=== PATIENT | male | born 1960 | race Caucasian/White ===

== ENCOUNTER 2022-03-10 11:16 | Inpatient (IN) | payer MEDICARE ==
[~2022-03-10 11:16] MED LIST: Iopamidol-370 76% 500 ML 1 ML ONE
[2022-03-10 12:16] LABS: #Eosinphils 0.2 thou/uL (0.0-0.7); #Lymphocytes 0.5 thou/uL (1.20-3.40); #Monocytes 0.7 thou/uL (0.11-0.59); #Neutrophils 4.7 thou/uL (1.40-6.50); %Basophils 0.4 % (0.0-1.0); %Eosinophils 3.4 % (0.0-10.0); %Lymphocytes 8.6 % (21.0-51.0); %Neutrophils 76.5 % (42.0-75.0); Hemoglobin 14.6 g/dL (14.0-18.0); Mean Corpuscular HGB CONC 33.9 g/dL (32.0-36.0); Mean Corpuscular Hemoglobin 30.5 pg (27.0-31.0); Mean Corpuscular Volume 89.8 fL (78.0-98.0); Mean Platelet Volume 7.3 fL (7.4-10.4); Platelet Count 175 thou/uL (130-400); White Blood Cell (WBC) Count 6.1 thou/uL (4.8-10.8)
[2022-03-10 12:24] LABS: Bilirubin Negative (Negative); Blood, Urine Negative (Negative); Clarity Clear (Clear); Glucose, Urine (Dipstick) Normal (Negative); Ketone, Urine Negative (Negative); Leukocyte Negative Leu/uL (Negative); Nitrite Negative (Negative); Protein, Urine (Dipstick) Negative (Neg-Trace); Specific Gravity, Urine 1.014 (1.002-1.036); Urobilinogen Normal mg/dL (Less than 2); pH, Urine 5.5 (5.0-9.0)
[2022-03-10 12:38] LABS: ALT (SGPT) 277 U/L (8-55); AST (SGOT) 239 U/L (5-34); Albumin 3.9 g/dL (3.4-4.8); Alkaline Phosphatase 120 U/L (40-110); Anion Gap 14 mmol/L (10-20); BUN (Urea Nitrogen) 9 mg/dL (8.4-25.7); Bilirubin, Total 0.5 mg/dL (0.2-1.2); Calc. Creatinine Clearance 0 mL/min (70-130); Calcium 8.6 mg/dL (7.8-10.44); Carbon Dioxide 25 mmol/L (23-31); Chloride 103 mmol/L (98-107); Estimated GFR 95; Globulin 2.4 g/dL (2.4-3.5); Glucose 105 mg/dL (80-115); Protein, Total 6.3 g/dL (5.8-8.1); Sodium 138 mmol/L (136-145)
[2022-03-10] MEDS ORDERED: traMADol HCl 50 MG TAB ONE (15:34)
[2022-03-10 17:03] LABS: SARS-CoV-2 NAA Rapid Test Not Detected (NotDetected)
[2022-03-10] MEDS ORDERED: Acetaminophen 325 MG TAB PO PRN (17:35)
[2022-03-10 17:54] LABS: Troponin I 0.016 ng/mL (< 0.028)
[2022-03-10 18:29] VITALS: BMI 28.0
[2022-03-10 18:44] LABS: HBSAg Index 0.33 S/CO (0-0.99); Hep A IgM AB Non-Reactive (NonReactive); Hep A IgM S/CO 0.13 S/CO (0-0.79); Hep B Surf Ag Non-Reactive S/CO (NonReactive); Hep C IgG Ab Non-Reactive (NonReactive); Hep C Index 0.07 S/CO (0-0.79); Thyroid Stimulating Hormone 55.3245 uIU/mL (0.35-4.94)
[2022-03-10 19:27] LABS: HBCM Index 0.05 S/CO (0-0.79); Hepatitis B Core IgM Abs Non-Reactive (NonReactive)
[2022-03-10 21:05] LABS: Troponin I Less than 0.010 ng/mL (< 0.028)
[2022-03-10] MEDS: traZODone HCl 150 MG TAB PO PRN (22:56)
[2022-03-10] MEDS: Ibuprofen 600 MG TAB PO PRN (22:56)
[2022-03-10] MEDS ORDERED: Gabapentin 300 MG CAP PO SCH (23:00)
[2022-03-11 05:11] LABS: Anion Gap 12 mmol/L (10-20); BUN (Urea Nitrogen) 11 mg/dL (8.4-25.7); Calc. Creatinine Clearance 99 mL/min (70-130); Calcium 8.6 mg/dL (7.8-10.44); Carbon Dioxide 26 mmol/L (23-31); Chloride 105 mmol/L (98-107); Estimated GFR 87; Glucose 122 mg/dL (80-115); Potassium 3.8 mmol/L (3.5-5.1); Sodium 139 mmol/L (136-145)
[2022-03-11] MEDS: Ibuprofen 600 MG TAB PO PRN (05:58)
[2022-03-11] MEDS: Levothyroxine 175 MCG TAB PO SCH (05:58)
[2022-03-11 06:46] LABS: Band 13 % (5-11); Eosinophils 10 % (0-10); Lymphocytes 29 % (21-51); MDiff Complete? YES; Mean Corpuscular HGB CONC 34.4 g/dL (32.0-36.0); Mean Corpuscular Hemoglobin 31.4 pg (27.0-31.0); Mean Corpuscular Volume 91.3 fL (78.0-98.0); Mean Platelet Volume 7.3 fL (7.4-10.4); Monocytes 9 % (0-10); Neutrophil 39 % (42-75); Platelet Count 154 thou/uL (130-400); Red Blood Cell (RBC) Count 4.13 mill/uL (4.70-6.10); White Blood Cell (WBC) Count 4.4 thou/uL (4.8-10.8)
[2022-03-11 07:56] LABS: Acetaminophen Less than 10.0 mcg/mL (10.0-30.0); Alcohol Less than 10 mg/dL (Less than 10); Salicylate Less than 8.0 mg/dL (15.0-30.0)
[2022-03-11] MEDS: methylPREDNISolone Sod Succ 40 MG VIAL IVP SCH ×3 (08:11→23:32)
[2022-03-11] MEDS: FLUoxetine HCl 20 MG CAP PO SCH (08:11)
[2022-03-11] MEDS: Morphine 4 MG/ML VIAL SLOW IVP PRN ×3 (14:51→23:33)
[2022-03-11 16:00] LABS: Amphetamine Not Detected (NotDetected); Barbiturates Screen Not Detected (NotDetected); Benzodiazepine Screen Not Detected (NotDetected); Cocaine Metabolite Screen Detected (NotDetected); Methadone Not Detected (NotDetected); Methamphetamine Not Detected (NotDetected); Opiate Screen Not Detected (NotDetected); Oxycodone Screen Not Detected (NotDetected); Phencyclidine (PCP) Not Detected (NotDetected); THC/Cannabinoid Screen Not Detected (NotDetected); Tricyclic Screen Not Detected (NotDetected)
[2022-03-11] MEDS: Ibuprofen 200 MG TAB PO PRN ×2 (16:58→23:33)
[2022-03-11] MEDS: Gabapentin 300 MG CAP PO SCH (19:37)
[2022-03-11] MEDS: traZODone HCl 150 MG TAB PO PRN (23:33)
[2022-03-12 05:01] LABS: #Lymphocytes 0.6 thou/uL (1.20-3.40); #Monocytes 0.4 thou/uL (0.11-0.59); %Basophils 0.1 % (0.0-1.0); %Eosinophils 0.1 % (0.0-10.0); %Lymphocytes 6.1 % (21.0-51.0); %Monocytes 4.4 % (0.0-10.0); %Neutrophils 89.3 % (42.0-75.0); Hemoglobin 11.9 g/dL (14.0-18.0); Mean Corpuscular Hemoglobin 31.2 pg (27.0-31.0); Mean Corpuscular Volume 91.9 fL (78.0-98.0); Mean Platelet Volume 7.4 fL (7.4-10.4); Platelet Count 169 thou/uL (130-400); RBC Distribution Width 13.1 % (11.5-14.5); Red Blood Cell (RBC) Count 3.82 mill/uL (4.70-6.10)
[2022-03-12 05:24] LABS: Anion Gap 14 mmol/L (10-20); BUN (Urea Nitrogen) 10 mg/dL (8.4-25.7); Calc. Creatinine Clearance 107 mL/min (70-130); Calcium 8.8 mg/dL (7.8-10.44); Carbon Dioxide 21 mmol/L (23-31); Chloride 107 mmol/L (98-107); Estimated GFR 95; Glucose 182 mg/dL (80-115); Potassium 3.7 mmol/L (3.5-5.1); Sodium 138 mmol/L (136-145)
[2022-03-12] MEDS: Levothyroxine 175 MCG TAB PO SCH (06:01)
[2022-03-12] MEDS: Morphine 4 MG/ML VIAL SLOW IVP PRN ×3 (06:01→18:12)
[2022-03-12 07:33] LABS: SARS-CoV-2 NAA Rapid Test Not Detected (NotDetected)
[2022-03-12] MEDS: FLUoxetine HCl 20 MG CAP PO SCH (08:49)
[2022-03-12] MEDS: methylPREDNISolone Sod Succ 40 MG VIAL IVP SCH (08:49)
[2022-03-12] MEDS: Ibuprofen 200 MG TAB PO PRN ×2 (08:50→20:07)
[2022-03-12 08:53] LABS: HIV (1/2) Antibody/Antigen Non-Reactive (NonReactive); HIV 1/2 INDEX 0.23 S/CO (<1.00)
[2022-03-12 14:40] LABS: ALT (SGPT) 147 U/L (8-55); AST (SGOT) 59 U/L (5-34); Albumin 4.2 g/dL (3.4-4.8); Alkaline Phosphatase 127 U/L (40-110); Bilirubin, Direct 0.1 mg/dL (0.1-0.3); Bilirubin, Total 0.2 mg/dL (0.2-1.2); Protein, Total 6.9 g/dL (5.8-8.1)
[2022-03-12] MEDS: Gabapentin 300 MG CAP PO SCH (20:07)
[2022-03-13] MEDS: Ibuprofen 200 MG TAB PO PRN (05:33)
[2022-03-13] MEDS: Levothyroxine 175 MCG TAB PO SCH (05:33)
[2022-03-13 07:08] LABS: #Eosinphils 0.3 thou/uL (0.0-0.7); #Lymphocytes 2.2 thou/uL (1.20-3.40); #Neutrophils 5.7 thou/uL (1.40-6.50); %Basophils 0.5 % (0.0-1.0); %Eosinophils 3.7 % (0.0-10.0); %Lymphocytes 24.2 % (21.0-51.0); %Monocytes 10.5 % (0.0-10.0); %Neutrophils 61.2 % (42.0-75.0); Mean Corpuscular HGB CONC 33.5 g/dL (32.0-36.0); Mean Corpuscular Hemoglobin 30.8 pg (27.0-31.0); Mean Platelet Volume 7.1 fL (7.4-10.4); Platelet Count 201 thou/uL (130-400); RBC Distribution Width 13.3 % (11.5-14.5); Red Blood Cell (RBC) Count 3.88 mill/uL (4.70-6.10); White Blood Cell (WBC) Count 9.2 thou/uL (4.8-10.8)
[2022-03-13] MEDS ORDERED: Cyclobenzaprine 10 MG TAB PO PRN (07:15)
[2022-03-13 07:28] LABS: Anion Gap 9 mmol/L (10-20); BUN (Urea Nitrogen) 10 mg/dL (8.4-25.7); Calc. Creatinine Clearance 104 mL/min (70-130); Calcium 8.4 mg/dL (7.8-10.44); Carbon Dioxide 28 mmol/L (23-31); Chloride 107 mmol/L (98-107); Estimated GFR 91; Glucose 95 mg/dL (80-115); Potassium 3.4 mmol/L (3.5-5.1); Sodium 141 mmol/L (136-145)
[2022-03-13] MEDS: FLUoxetine HCl 20 MG CAP PO SCH (07:38)
[2022-03-13 11:24] VITALS: BP 128/70; TEMP 97.5
== END 2022-03-13 12:21 | disposition home or self-care (01) | DRG 202 ==
LOC: ERS 11:16 → 2SW 16:47 → OBSVTOIN 03-11 11:46
PROVIDERS: ADMIT Internal Medicine; ATTEND Internal Medicine
DX: J20.9 Acute bronchitis, unspecified (principal); J18.9 Pneumonia, unspecified organism; Z20.822 Contact with and (suspected) exposure to COVID-19; E03.9 Hypothyroidism, unspecified; F32.A Depression, unspecified; G62.9 Polyneuropathy, unspecified; F17.290 Nicotine dependence, other tobacco product, uncomplicated; F39 Unspecified mood [affective] disorder; Z79.899 Other long term (current) drug therapy; Z79.890 Hormone replacement therapy
CPT/HCPCS: 36415; 71045; 71260; 76705; 80048; 80053; 80074; 80076; 80306; 80307; 81003; 83605; 83880; 84443; 84484; 85025; 87040; 87389; 93005; 93306; 94640; 96374; 96375; G0378; J1956; J2270; J2920; J7620; Q9967; U0002

== ENCOUNTER 2022-04-02 16:33 | Emergency (ER) | payer MEDICARE ==
[2022-04-02 17:29] LABS: #Basophils 0.1 thou/uL (0.0-0.2); #Eosinphils 0.3 thou/uL (0.0-0.7); #Lymphocytes 2.6 thou/uL (1.20-3.40); #Monocytes 0.8 thou/uL (0.11-0.59); #Neutrophils 3.5 thou/uL (1.40-6.50); %Basophils 0.8 % (0.0-1.0); %Eosinophils 4.5 % (0.0-10.0); %Lymphocytes 35.8 % (21.0-51.0); %Monocytes 10.3 % (0.0-10.0); %Neutrophils 48.6 % (42.0-75.0); Hemoglobin 15.3 g/dL (14.0-18.0); Mean Corpuscular HGB CONC 32.6 g/dL (32.0-36.0); Mean Corpuscular Hemoglobin 29.3 pg (27.0-31.0); Mean Corpuscular Volume 89.9 fL (78.0-98.0); Mean Platelet Volume 6.7 fL (7.4-10.4); Platelet Count 328 thou/uL (130-400); RBC Distribution Width 12.8 % (11.5-14.5); Red Blood Cell (RBC) Count 5.22 mill/uL (4.70-6.10); White Blood Cell (WBC) Count 7.3 thou/uL (4.8-10.8)
[2022-04-02 17:50] LABS: ALT (SGPT) 14 U/L (8-55); AST (SGOT) 17 U/L (5-34); Albumin 4.4 g/dL (3.4-4.8); Alkaline Phosphatase 97 U/L (40-110); Anion Gap 17 mmol/L (10-20); BUN (Urea Nitrogen) 13 mg/dL (8.4-25.7); Bilirubin, Total 0.3 mg/dL (0.2-1.2); Calc. Creatinine Clearance 0 mL/min (70-130); Carbon Dioxide 24 mmol/L (23-31); Chloride 102 mmol/L (98-107); Estimated GFR 81; Glucose 96 mg/dL (80-115); Lipase 24 U/L (8-78); Protein, Total 7.4 g/dL (5.8-8.1); Sodium 139 mmol/L (136-145)
[2022-04-02] MEDS ORDERED: Morphine 4 MG/ML VIAL ONE (19:19)
[2022-04-02] MEDS ORDERED: Ondansetron PF 4 MG/2 ML Vial ONE (19:19)
[2022-04-02 19:47] LABS: Bilirubin Negative (Negative); Blood, Urine Negative (Negative); Clarity Clear (Clear); Glucose, Urine (Dipstick) Normal (Negative); Ketone, Urine Negative (Negative); Leukocyte Negative Leu/uL (Negative); Nitrite Negative (Negative); Protein, Urine (Dipstick) Negative (Neg-Trace); Specific Gravity, Urine 1.014 (1.002-1.036); Urobilinogen Normal mg/dL (Less than 2)
[2022-04-02] MEDS ORDERED: Mag-Al 1200 mg/1200 mg/30 ML UDCUP ONE (20:29)
[2022-04-02] MEDS ORDERED: Lidocaine Viscous Sol 2% 15 ml UD Cup ONE (20:29)
== END 2022-04-02 20:44 | disposition home or self-care (01) ==
LOC: ERS 16:33
DX: K52.1 Toxic gastroenteritis and colitis (principal); R10.9 Unspecified abdominal pain; T36.95XA Adverse effect of unspecified systemic antibiotic, initial encounter; E03.9 Hypothyroidism, unspecified; Z87.891 Personal history of nicotine dependence
CPT/HCPCS: 36415; 80053; 81003; 83690; 85025; 96374; 96375; J2270; J2405

== ENCOUNTER 2022-05-20 07:49 | Emergency (ER) | payer MEDICARE ==
[2022-05-20 09:39] LABS: #Eosinphils 0.1 thou/uL (0.0-0.7); #Lymphocytes 1.9 thou/uL (1.20-3.40); #Monocytes 1.6 thou/uL (0.11-0.59); #Neutrophils 8.1 thou/uL (1.40-6.50); %Basophils 0.3 % (0.0-1.0); %Eosinophils 0.9 % (0.0-10.0); %Lymphocytes 16.4 % (21.0-51.0); %Monocytes 13.3 % (0.0-10.0); %Neutrophils 69.1 % (42.0-75.0); Hemoglobin 13.9 g/dL (14.0-18.0); Mean Corpuscular HGB CONC 32.5 g/dL (32.0-36.0); Mean Corpuscular Hemoglobin 29.1 pg (27.0-31.0); Mean Corpuscular Volume 89.6 fL (78.0-98.0); Platelet Count 240 thou/uL (130-400); RBC Distribution Width 13.5 % (11.5-14.5); Red Blood Cell (RBC) Count 4.76 mill/uL (4.70-6.10); White Blood Cell (WBC) Count 11.7 thou/uL (4.8-10.8)
[2022-05-20 09:52] LABS: ALT (SGPT) 41 U/L (8-55); AST (SGOT) 70 U/L (5-34); Alkaline Phosphatase 83 U/L (40-110); Anion Gap 17 mmol/L (10-20); BUN (Urea Nitrogen) 29 mg/dL (8.4-25.7); Bilirubin, Total 1.6 mg/dL (0.2-1.2); Calc. Creatinine Clearance 0 mL/min (70-130); Calcium 9.7 mg/dL (7.8-10.44); Carbon Dioxide 25 mmol/L (23-31); Chloride 98 mmol/L (98-107); Estimated GFR 57; Globulin 3.1 g/dL (2.4-3.5); Glucose 130 mg/dL (80-115); Potassium 3.5 mmol/L (3.5-5.1); Protein, Total 8.1 g/dL (5.8-8.1); Sodium 136 mmol/L (136-145)
[2022-05-20 11:33] LABS: Bacteria/HPF None Seen HPF (None Seen); Bilirubin Negative (Negative); Blood, Urine 2+ (Negative); Clarity Clear (Clear); Glucose, Urine (Dipstick) Normal (Negative); Ketone, Urine Negative (Negative); Leukocyte Negative Leu/uL (Negative); Mucous/LPF 1+ LPF (<2+); Nitrite Negative (Negative); Protein, Urine (Dipstick) 70 mg/dL (Neg-Trace); RBC/HPF 0-3 HPF (0-3); Squamous Epithelial 0-3 HPF (0-3); Urobilinogen Normal mg/dL (Less than 2); pH, Urine 5.5 (5.0-9.0)
[2022-05-20 11:39] LABS: Sperm/HPF Rare HPF (None Seen)
== END 2022-05-20 11:50 | disposition home or self-care (01) ==
LOC: ERS 07:49
DX: T14.8XXA Other injury of unspecified body region, initial encounter (principal); R11.2 Nausea with vomiting, unspecified; R19.7 Diarrhea, unspecified; Z87.891 Personal history of nicotine dependence; W57.XXXA Bitten or stung by nonvenomous insect and other nonvenomous arthropods, initial encounter
CPT/HCPCS: 36415; 80053; 81003; 81015; 85025; 99283

== ENCOUNTER 2022-07-14 15:57 | Emergency (ER) | payer MEDICARE ==
[2022-07-14] MEDS ORDERED: hydrOXYzine 25 MG TAB ONE (16:24)
[2022-07-14] MEDS ORDERED: Diazepam 10 MG/2 ML SYRINGE ONE (16:43)
[2022-07-14 17:22] LABS: #Basophils 0.1 thou/uL (0.0-0.2); #Eosinphils 0.1 thou/uL (0.0-0.7); #Monocytes 0.5 thou/uL (0.11-0.59); #Neutrophils 2.9 thou/uL (1.40-6.50); %Basophils 1.5 % (0.0-1.0); %Eosinophils 1.8 % (0.0-10.0); %Lymphocytes 35.9 % (21.0-51.0); %Monocytes 8.6 % (0.0-10.0); %Neutrophils 52.2 % (42.0-75.0); Hemoglobin 14.8 g/dL (14.0-18.0); Mean Corpuscular HGB CONC 33.6 g/dL (32.0-36.0); Mean Corpuscular Hemoglobin 31.6 pg (27.0-31.0); Mean Corpuscular Volume 93.9 fl (78.0-98.0); Mean Platelet Volume 6.8 fL (7.4-10.4); Platelet Count 220 10x3/uL (130-400); RBC Distribution Width 14.3 % (11.5-14.5); Red Blood Cell (RBC) Count 4.67 mill/uL (4.70-6.10); White Blood Cell (WBC) Count 5.6 10x3/uL (4.8-10.8)
[2022-07-14 17:31] LABS: Bacteria/HPF None Seen HPF (None Seen); Bilirubin Negative (Negative); Blood, Urine Trace (Negative); Clarity Clear (Clear); Glucose, Urine (Dipstick) Normal (Negative); Ketone, Urine Negative (Negative); Leukocyte Negative Leu/uL (Negative); Nitrite Negative (Negative); Protein, Urine (Dipstick) Negative (Neg-Trace); RBC/HPF 0-3 HPF (0-3); Specific Gravity, Urine 1.008 (1.002-1.036); Squamous Epithelial None Seen HPF (0-3); Urobilinogen Normal mg/dL (Less than 2); WBC/HPF 0-3 HPF (0-3); pH, Urine 5.5 (5.0-9.0)
[2022-07-14 17:38] LABS: Amphetamine Not Detected (NotDetected); Barbiturates Screen Not Detected (NotDetected); Benzodiazepine Screen Not Detected (NotDetected); Cocaine Metabolite Screen Not Detected (NotDetected); Methadone Not Detected (NotDetected); Methamphetamine Not Detected (NotDetected); Opiate Screen Not Detected (NotDetected); Oxycodone Screen Not Detected (NotDetected); Phencyclidine (PCP) Not Detected (NotDetected); THC/Cannabinoid Screen Not Detected (NotDetected); Tricyclic Screen Not Detected (NotDetected)
[2022-07-14 17:46] LABS: ALT (SGPT) 28 U/L (8-55); AST (SGOT) 80 U/L (5-34); Acetaminophen Less than 10.0 mcg/mL (10.0-30.0); Albumin 4.3 g/dL (3.4-4.8); Alcohol 352 mg/dL (Less than 10); Alkaline Phosphatase 83 U/L (40-110); Anion Gap 16 mmol/L (10-20); BUN (Urea Nitrogen) 18 mg/dL (8.4-25.7); Bilirubin, Total 0.7 mg/dL (0.2-1.2); Calc. Creatinine Clearance 0 mL/min (70-130); Calcium 8.2 mg/dL (7.8-10.44); Carbon Dioxide 25 mmol/L (23-31); Chloride 104 mmol/L (98-107); Estimated GFR 96; Globulin 2.9 g/dL (2.4-3.5); Glucose 91 mg/dL (80-115); Potassium 3.8 mmol/L (3.5-5.1); Protein, Total 7.2 g/dL (5.8-8.1); Salicylate Less than 8.0 mg/dL (15.0-30.0); Sodium 141 mmol/L (136-145)
[2022-07-14] MEDS ORDERED: Diazepam 5 MG TAB ONE (17:49)
[2022-07-14] MEDS ORDERED: Ziprasidone 20 MG VIAL ONE (18:35)
[2022-07-14] MEDS ORDERED: Sterile Water 10 ML ONE (18:36)
[2022-07-15] MEDS ORDERED: Lorazepam 1 MG TAB ONE ×2 (03:26→10:59)
[2022-07-15] MEDS ORDERED: Acetaminophen 500 MG TAB ONE (10:59)
== END 2022-07-15 14:33 ==
LOC: ERS 15:57
DX: R45.851 Suicidal ideations (principal); E03.9 Hypothyroidism, unspecified; Z87.891 Personal history of nicotine dependence
CPT/HCPCS: 36415; 80053; 80306; 80307; 81003; 81015; 84443; 84484; 85025; 93005; 96372; J3360; J3486

== ENCOUNTER 2022-08-25 03:18 | Emergency (ER) | payer MEDICARE ==
[2022-08-25] MEDS ORDERED: Ondansetron PF 4 MG/2 ML Vial ONE (03:41)
[2022-08-25 04:33] LABS: #Basophils 0.1 thou/uL (0.0-0.2); #Eosinphils 0.4 thou/uL (0.0-0.7); #Lymphocytes 2.1 thou/uL (1.20-3.40); #Monocytes 0.8 thou/uL (0.11-0.59); #Neutrophils 3.6 thou/uL (1.40-6.50); %Basophils 1.2 % (0.0-1.0); %Eosinophils 5.2 % (0.0-10.0); %Lymphocytes 30.8 % (21.0-51.0); %Monocytes 11.1 % (0.0-10.0); %Neutrophils 51.6 % (42.0-75.0); Hemoglobin 13.3 g/dL (14.0-18.0); Mean Corpuscular HGB CONC 36.3 g/dL (32.0-36.0); Mean Corpuscular Hemoglobin 34.2 pg (27.0-31.0); Mean Corpuscular Volume 94.2 fl (78.0-98.0); Mean Platelet Volume 6.7 fL (7.4-10.4); Platelet Count 424 10x3/uL (130-400); Red Blood Cell (RBC) Count 3.89 mill/uL (4.70-6.10); White Blood Cell (WBC) Count 6.9 10x3/uL (4.8-10.8)
[2022-08-25 04:59] LABS: ALT (SGPT) 19 U/L (8-55); AST (SGOT) 28 U/L (5-34); Albumin 3.9 g/dL (3.4-4.8); Alkaline Phosphatase 61 U/L (40-110); Anion Gap 18 mmol/L (10-20); BUN (Urea Nitrogen) 16 mg/dL (8.4-25.7); Bilirubin, Total 0.2 mg/dL (0.2-1.2); Calc. Creatinine Clearance 0 mL/min (70-130); Calcium 8.7 mg/dL (7.8-10.44); Carbon Dioxide 25 mmol/L (23-31); Chloride 101 mmol/L (98-107); Estimated GFR 84; Glucose 90 mg/dL (80-115); Lipase 32 U/L (8-78); Magnesium 2.1 mg/dL (1.6-2.6); Potassium 4.4 mmol/L (3.5-5.1); Protein, Total 6.9 g/dL (5.8-8.1); Sodium 140 mmol/L (136-145)
== END 2022-08-25 05:10 | disposition home or self-care (01) ==
LOC: ERS 03:18
DX: F10.10 Alcohol abuse, uncomplicated (principal); E03.9 Hypothyroidism, unspecified; Z87.891 Personal history of nicotine dependence
CPT/HCPCS: 80053; 83690; 83735; 85025; 96374; J2405

== ENCOUNTER 2022-08-26 08:22 | Emergency (ER) | payer MEDICARE ==
[2022-08-26] MEDS ORDERED: Thiamine HCl 200 MG/2 ML VIAL SLOW IVP SCH (09:00)
[2022-08-26 09:36] LABS: Hemoglobin 14.4 g/dL (14.0-18.0); Mean Corpuscular HGB CONC 34.6 g/dL (32.0-36.0); Mean Corpuscular Hemoglobin 32.2 pg (27.0-31.0); Mean Corpuscular Volume 93.2 fl (78.0-98.0); Mean Platelet Volume 6.6 fL (7.4-10.4); Platelet Count 509 10x3/uL (130-400); RBC Distribution Width 13.3 % (11.5-14.5); Red Blood Cell (RBC) Count 4.47 mill/uL (4.70-6.10)
[2022-08-26 09:50] LABS: ALT (SGPT) 75 U/L (8-55); AST (SGOT) 103 U/L (5-34); Acetaminophen Less than 10.0 mcg/mL (10.0-30.0); Albumin 4.2 g/dL (3.4-4.8); Alcohol 208 mg/dL (Less than 10); Alkaline Phosphatase 67 U/L (40-110); Anion Gap 15 mmol/L (10-20); BUN (Urea Nitrogen) 16 mg/dL (8.4-25.7); Bilirubin, Total 0.4 mg/dL (0.2-1.2); CK (CPK) 585 U/L (30-200); Calc. Creatinine Clearance 0 mL/min (70-130); Calcium 8.5 mg/dL (7.8-10.44); Carbon Dioxide 29 mmol/L (23-31); Chloride 101 mmol/L (98-107); Estimated GFR 89; Globulin 3.2 g/dL (2.4-3.5); Glucose 118 mg/dL (80-115); Potassium 3.9 mmol/L (3.5-5.1); Protein, Total 7.4 g/dL (5.8-8.1); Salicylate Less than 8.0 mg/dL (15.0-30.0); Sodium 141 mmol/L (136-145)
[2022-08-26 10:26] LABS: Band 2 % (5-11); Lymphocytes 24 % (21-51); MDiff Complete? YES; Monocytes 12 % (0-10); Neutrophil 62 % (42-75); Platelet Morphology Comment Appears Increased
== END 2022-08-26 10:30 | disposition home or self-care (01) ==
LOC: ERS 08:22
DX: S00.03XA Contusion of scalp, initial encounter (principal); D72.829 Elevated white blood cell count, unspecified; F10.180 Alcohol abuse with alcohol-induced anxiety disorder; K29.70 Gastritis, unspecified, without bleeding; E03.9 Hypothyroidism, unspecified; W19.XXXA Unspecified fall, initial encounter; Y90.7 Blood alcohol level of 200-239 mg/100 ml; Z87.891 Personal history of nicotine dependence
CPT/HCPCS: 70450; 71045; 80053; 80307; 82140; 82550; 83690; 84484; 85025; 93005; 96361; 96374; J3411

== ENCOUNTER 2023-05-29 10:25 | Emergency (ER) | payer MEDICARE, OTHER ==
[2023-05-29 11:03] LABS: #Basophils 0.1 thou/uL (0.0-0.2); #Eosinphils 0.5 thou/uL (0.0-0.7); #Monocytes 1.5 thou/uL (0.11-0.59); #Neutrophils 11.8 thou/uL (1.40-6.50); %Basophils 0.7 % (0.0-1.0); %Lymphocytes 7.8 % (21.0-51.0); %Neutrophils 77.3 % (42.0-75.0); Hematocrit 38.4 % (42.0-52.0); Hemoglobin 12.7 g/dL (14.0-18.0); Mean Corpuscular HGB CONC 33.1 g/dL (32.0-36.0); Mean Corpuscular Volume 87.7 fl (78.0-98.0); Mean Platelet Volume 8.6 fL (7.4-10.4); Platelet Count 401 10x3/uL (130-400); RBC Distribution Width 16.3 % (11.5-14.5); Red Blood Cell (RBC) Count 4.38 mill/uL (4.70-6.10); White Blood Cell (WBC) Count 15.3 10x3/uL (4.8-10.8)
[2023-05-29 11:16] LABS: INR-International Normal Ratio 1.1; Prothrombin Time 14.2 sec (12.0-14.7)
[2023-05-29 11:17] LABS: PTT 27.4 sec (22.9-36.1)
[2023-05-29] MEDS ORDERED: Ibuprofen 800 MG TAB ONE (11:31)
[2023-05-29 11:32] LABS: ALT (SGPT) 13 U/L (8-55); AST (SGOT) 17 U/L (5-34); Albumin 4.4 g/dL (3.4-4.8); Alkaline Phosphatase 117 U/L (40-110); Anion Gap 14 mmol/L (10-20); BUN (Urea Nitrogen) 12 mg/dL (8.4-25.7); Bilirubin, Total 0.3 mg/dL (0.2-1.2); Calc. Creatinine Clearance 0 mL/min (70-130); Calcium 9.4 mg/dL (7.8-10.44); Carbon Dioxide 24 mmol/L (23-31); Chloride 100 mmol/L (98-107); Estimated GFR 97; Globulin 2.9 g/dL (2.4-3.5); Glucose 94 mg/dL (80-115); Potassium 4.1 mmol/L (3.5-5.1); Protein, Total 7.3 g/dL (5.8-8.1); Sodium 134 mmol/L (136-145)
[2023-05-29] MEDS ORDERED: Ibuprofen 200 MG TAB ONE (11:32)
[2023-05-29] MEDS ORDERED: Acetaminophen/Codeine 30-300mg Tablet ONE (11:32)
[2023-05-29] MEDS ORDERED: Sodium Chloride 0.9% 100 ML ONE (11:54)
[2023-05-29] MEDS ORDERED: Cefepime 2 GM VIAL ONE (11:54)
[2023-05-29 12:39] LABS: SARS-CoV-2 NAA Rapid Test Not Detected (NotDetected)
[2023-05-29 13:28] LABS: Bacteria/HPF None Seen HPF (None Seen); Bilirubin Negative (Negative); Blood, Urine Negative (Negative); CAUTI Indications for Culture Pelvic or flank pain; Clarity Clear (Clear); Glucose, Urine (Dipstick) Normal (Negative); Ketone, Urine Negative (Negative); Leukocyte Negative Leu/uL (Negative); Nitrite Negative (Negative); Protein, Urine (Dipstick) Negative (Neg-Trace); RBC/HPF 0-3 HPF (0-3); Specific Gravity, Urine 1.011 (1.002-1.036); Squamous Epithelial None Seen HPF (0-3); Urobilinogen Normal mg/dL (Less than 2); WBC/HPF None Seen HPF (0-3); pH, Urine 6.5 (5.0-9.0)
[2023-05-29] MEDS ORDERED: cefTRIAXone (ROCEPHIN) 1 GM VIAL ONE (13:30)
[2023-05-29] MEDS ORDERED: Lidocaine 1% MPF 2 ML VIAL ONE (13:31)
[2023-05-29 13:32] LABS: Urine Culture Reflex No No
== END 2023-05-29 13:50 | disposition home or self-care (01) ==
LOC: ERS 10:25
DX: J18.9 Pneumonia, unspecified organism (principal); E03.9 Hypothyroidism, unspecified; F17.290 Nicotine dependence, other tobacco product, uncomplicated; Z20.822 Contact with and (suspected) exposure to COVID-19
CPT/HCPCS: 0240U; 71045; 80053; 81001; 83605; 85025; 85610; 85730; 87040; 87086; 93005; 94760; 96365; 96366; 96372; 99284; 36415; J0692; J0696; J3490

== ENCOUNTER 2023-06-16 21:31 | Emergency (ER) | payer MEDICARE, OTHER ==
[2023-06-16 22:50] LABS: #Basophils 0.1 thou/uL (0.0-0.2); #Eosinphils 0.9 thou/uL (0.0-0.7); #Monocytes 1.1 thou/uL (0.11-0.59); #Neutrophils 2.8 thou/uL (1.40-6.50); %Eosinophils 12.5 % (0.0-10.0); %Lymphocytes 28.7 % (21.0-51.0); %Monocytes 16.3 % (0.0-10.0); %Neutrophils 40.6 % (42.0-75.0); Hematocrit 35.6 % (42.0-52.0); Hemoglobin 12.2 g/dL (14.0-18.0); Mean Corpuscular HGB CONC 34.3 g/dL (32.0-36.0); Mean Corpuscular Hemoglobin 28.9 pg (27.0-31.0); Mean Corpuscular Volume 84.4 fl (78.0-98.0); Mean Platelet Volume 9.1 fL (7.4-10.4); Platelet Count 283 10x3/uL (130-400); RBC Distribution Width 15.1 % (11.5-14.5); Red Blood Cell (RBC) Count 4.22 mill/uL (4.70-6.10); White Blood Cell (WBC) Count 6.9 10x3/uL (4.8-10.8)
[2023-06-16 23:04] LABS: INR-International Normal Ratio 1.1; Prothrombin Time 14.4 sec (12.0-14.7)
[2023-06-16 23:05] LABS: PTT 30.9 sec (22.9-36.1)
[2023-06-16 23:14] LABS: ALT (SGPT) 12 U/L (8-55); AST (SGOT) 16 U/L (5-34); Albumin 3.8 g/dL (3.4-4.8); Alkaline Phosphatase 102 U/L (40-110); Anion Gap 18 mmol/L (10-20); BUN (Urea Nitrogen) 6 mg/dL (8.4-25.7); Bilirubin, Total 0.3 mg/dL (0.2-1.2); Calc. Creatinine Clearance 0 mL/min (70-130); Calcium 8.5 mg/dL (7.8-10.44); Carbon Dioxide 25 mmol/L (23-31); Chloride 100 mmol/L (98-107); Estimated GFR 103; Globulin 2.5 g/dL (2.4-3.5); Potassium 3.2 mmol/L (3.5-5.1); Protein, Total 6.3 g/dL (5.8-8.1); Sodium 140 mmol/L (136-145)
[2023-06-16 23:18] LABS: Glucose 48 mg/dL (80-115)
[2023-06-17 00:43] LABS: Troponin I Less than 0.010 ng/mL (< 0.028)
[2023-06-17] MEDS ORDERED: Potassium Chloride 20 MEQ TAB ONE ×2 (01:07→01:11)
[2023-06-17] MEDS ORDERED: Pantoprazole 40 MG VIAL ONE (01:07)
[2023-06-17] MEDS ORDERED: Ondansetron PF 4 MG/2 ML Vial ONE (01:07)
[2023-06-17] MEDS ORDERED: Morphine 4 MG/ML VIAL ONE (01:07)
[2023-06-17 02:11] LABS: SARS-CoV-2 NAA Rapid Test Not Detected (NotDetected)
[2023-06-17] MEDS ORDERED: Iopamidol-370 76% 500 ML MDV (1 ML CHARGE) ONE (09:09)
== END 2023-06-17 02:57 | disposition home or self-care (01) ==
LOC: ERS 21:31
DX: K52.9 Noninfective gastroenteritis and colitis, unspecified (principal); K29.70 Gastritis, unspecified, without bleeding; E87.6 Hypokalemia; Z20.822 Contact with and (suspected) exposure to COVID-19; E03.9 Hypothyroidism, unspecified; F17.290 Nicotine dependence, other tobacco product, uncomplicated; Z79.899 Other long term (current) drug therapy
CPT/HCPCS: 0240U; 71045; 74177; 80053; 82962; 83690; 84484; 85025; 85610; 85730; 86850; 86900; 86901; 87324; 87328; 87329; 87449; 93005; 36415; 36416; 82274; 96361; 96374; 96375; C9113; J2270; J2405; Q9967

== ENCOUNTER 2023-07-07 20:31 | Inpatient (IN) | payer MEDICARE, OTHER ==
[2023-07-07] MEDS ORDERED: Magnesium 2 GM/50 ML BAG (IN WATER) ONE (22:06)
[2023-07-07 22:11] LABS: #Basophils 0.1 thou/uL (0.0-0.2); #Eosinphils 0.3 thou/uL (0.0-0.7); #Monocytes 1.4 thou/uL (0.11-0.59); #Neutrophils 6.4 thou/uL (1.40-6.50); %Basophils 0.9 % (0.0-1.0); %Lymphocytes 26.2 % (21.0-51.0); %Monocytes 12.6 % (0.0-10.0); %Neutrophils 57.2 % (42.0-75.0); Hematocrit 40.2 % (42.0-52.0); Hemoglobin 13.7 g/dL (14.0-18.0); Mean Corpuscular HGB CONC 34.1 g/dL (32.0-36.0); Mean Platelet Volume 9.2 fL (7.4-10.4); Platelet Count 292 10x3/uL (130-400); RBC Distribution Width 15.5 % (11.5-14.5); Red Blood Cell (RBC) Count 4.73 mill/uL (4.70-6.10); White Blood Cell (WBC) Count 11.1 10x3/uL (4.8-10.8)
[2023-07-07] MEDS ORDERED: Multivitamins, Adult 10 ML, Thiamine HCl 100 MG, Folic Acid 1 MG in Dextrose 5 %-0.45 %... IV SCH (22:15)
[2023-07-07 22:26] LABS: Phosphorus 2.9 mg/dL (2.3-4.7)
[2023-07-07 22:30] LABS: ALT (SGPT) 15 U/L (8-55); AST (SGOT) 34 U/L (5-34); Albumin 4.3 g/dL (3.4-4.8); Alkaline Phosphatase 105 U/L (40-110); Anion Gap 18 mmol/L (10-20); BUN (Urea Nitrogen) 10 mg/dL (8.4-25.7); Bilirubin, Total 0.4 mg/dL (0.2-1.2); CK (CPK) 467 U/L (30-200); Calc. Creatinine Clearance 0 mL/min (70-130); Calcium 8.9 mg/dL (7.8-10.44); Carbon Dioxide 23 mmol/L (23-31); Chloride 105 mmol/L (98-107); Estimated GFR 98; Glucose 92 mg/dL (80-115); Potassium 3.8 mmol/L (3.5-5.1); Protein, Total 7.3 g/dL (5.8-8.1); Sodium 142 mmol/L (136-145)
[2023-07-07 22:32] LABS: Acetaminophen Less than 10 mcg/mL (10.0-30.0); Alcohol 252.3 mg/dL (Less than 10); Lipase 26 U/L (8-78); Magnesium 2.2 mg/dL (1.6-2.6); Salicylate Less than 8.0 mg/dL (15.0-30.0); Troponin I Less than 0.010 ng/mL (< 0.028)
[2023-07-08] MEDS ORDERED: Ondansetron ODT 4 MG TAB PO PRN ×2 (00:02)
[2023-07-08] MEDS ORDERED: Senokot S 8.6-50 MG TAB PO PRN (00:02)
[2023-07-08] MEDS ORDERED: Lorazepam 2 MG/ML VIAL IM PRN (00:02)
[2023-07-08] MEDS ORDERED: Ondansetron PF 4 MG/2 ML Vial IVP PRN (00:02)
[2023-07-08] MEDS ORDERED: Electrolyte Replacement Protocol 1 EACH FS PRN (00:15)
[2023-07-08] MEDS ORDERED: Albuterol 200 PUFF (6.7GM INHALER) INH PRN (00:17)
[2023-07-08] MEDS ORDERED: LORazepam 2 MG/ML SYR.(CARPUJECT) ONE ×2 (01:57→05:32)
[2023-07-08] MEDS ORDERED: Loperamide HCl 2 MG CAP PO PRN (02:01)
[2023-07-08] MEDS ORDERED: Loperamide HCl 2 MG CAP ONE ×2 (02:06→08:46)
[2023-07-08] MEDS ORDERED: Vancomycin HCl 125 MG Capsule PO SCH (02:15)
[2023-07-08] MEDS: Vancomycin HCl 125 MG Capsule PO SCH ×4 (06:07→23:55)
[2023-07-08] MEDS ORDERED: LORazepam 2 MG/ML SYR.(CARPUJECT) IVP SCH (06:45)
[2023-07-08 08:00] LABS: #Basophils 0.1 thou/uL (0.0-0.2); #Eosinphils 0.5 thou/uL (0.0-0.7); #Monocytes 1.3 thou/uL (0.11-0.59); #Neutrophils 4.2 thou/uL (1.40-6.50); %Basophils 1.1 % (0.0-1.0); %Eosinophils 5.7 % (0.0-10.0); %Lymphocytes 22.3 % (21.0-51.0); %Neutrophils 53.6 % (42.0-75.0); Hematocrit 36.4 % (42.0-52.0); Hemoglobin 12.5 g/dL (14.0-18.0); Mean Corpuscular HGB CONC 34.3 g/dL (32.0-36.0); Mean Corpuscular Hemoglobin 29.4 pg (27.0-31.0); Mean Corpuscular Volume 85.6 fl (78.0-98.0); Mean Platelet Volume 9.5 fL (7.4-10.4); Platelet Count 255 10x3/uL (130-400); RBC Distribution Width 15.7 % (11.5-14.5); Red Blood Cell (RBC) Count 4.25 mill/uL (4.70-6.10); White Blood Cell (WBC) Count 7.9 10x3/uL (4.8-10.8)
[2023-07-08 08:29] LABS: ALT (SGPT) 13 U/L (8-55); AST (SGOT) 27 U/L (5-34); Albumin 3.9 g/dL (3.4-4.8); Alkaline Phosphatase 100 U/L (40-110); Anion Gap 14 mmol/L (10-20); BUN (Urea Nitrogen) 8 mg/dL (8.4-25.7); Bilirubin, Total 0.9 mg/dL (0.2-1.2); Calc. Creatinine Clearance 124 mL/min (70-130); Calcium 8.4 mg/dL (7.8-10.44); Carbon Dioxide 23 mmol/L (23-31); Chloride 105 mmol/L (98-107); Estimated GFR 100; Globulin 2.6 g/dL (2.4-3.5); Glucose 101 mg/dL (80-115); Phosphorus 3.6 mg/dL (2.3-4.7); Protein, Total 6.5 g/dL (5.8-8.1); Sodium 138 mmol/L (136-145)
[2023-07-08] MEDS ORDERED: Folic Acid 1 MG TAB ONE (08:46)
[2023-07-08] MEDS ORDERED: Famotidine 20 MG TAB ONE (08:46)
[2023-07-08] MEDS ORDERED: Lorazepam 1 MG TAB ONE (08:46)
[2023-07-08] MEDS ORDERED: Multivit, Therapeutic 1 TAB ONE (08:47)
[2023-07-08] MEDS ORDERED: Levothyroxine Sodium 100 MCG TAB ONE ×2 (08:50→08:57)
[2023-07-08] MEDS: Levothyroxine Sodium 100 MCG TAB PO SCH (09:00)
[2023-07-08] MEDS: Famotidine 20 MG TAB PO SCH ×2 (09:00→20:37)
[2023-07-08] MEDS: Multivit, Therapeutic 1 TAB PO SCH (09:01)
[2023-07-08] MEDS: pyridOXINE 50 MG (B6) TAB PO SCH (09:01)
[2023-07-08] MEDS: Folic Acid 1 MG TAB PO SCH (09:01)
[2023-07-08] MEDS: Lorazepam 1 MG TAB PO PRN ×5 (09:01→22:02)
[2023-07-08 11:33] LABS: Bacteria/HPF None Seen HPF (None Seen); Bilirubin Negative (Negative); Blood, Urine Negative (Negative); CAUTI Indications for Culture Alt mental st,lethar; Clarity Clear (Clear); Glucose, Urine (Dipstick) Normal (Negative); Ketone, Urine Negative (Negative); Leukocyte Negative Leu/uL (Negative); Nitrite Negative (Negative); Protein, Urine (Dipstick) Negative (Neg-Trace); RBC/HPF 0-3 HPF (0-3); Specific Gravity, Urine 1.013 (1.002-1.036); Squamous Epithelial None Seen HPF (0-3); Urobilinogen Normal mg/dL (Less than 2); WBC/HPF 0-3 HPF (0-3); pH, Urine 6.5 (5.0-9.0)
[2023-07-08 11:36] LABS: Amphetamine Not Detected (NotDetected); Barbiturates Screen Not Detected (NotDetected); Benzodiazepine Screen Detected (NotDetected); Cocaine Metabolite Screen Not Detected (NotDetected); Methadone Not Detected (NotDetected); Methamphetamine Not Detected (NotDetected); Opiate Screen Not Detected (NotDetected); Oxycodone Screen Not Detected (NotDetected); Phencyclidine (PCP) Not Detected (NotDetected); THC/Cannabinoid Screen Not Detected (NotDetected); Tricyclic Screen Not Detected (NotDetected)
[2023-07-08] MEDS ORDERED: Magnesium 2 GM/50 ML(in water) 2 GM in Premix 1 BAG IVPB SCH (12:00)
[2023-07-08 12:04] LABS: Urine Culture Reflex No No
[2023-07-08] MEDS ORDERED: Magnesium 2 GM/50 ML BAG (IN WATER) ONE (12:26)
[2023-07-08] MEDS ORDERED: Methylcellulose 500 MG TAB PO SCH (13:00)
[2023-07-08] MEDS: Thiamine HCl 200 MG/2 ML VIAL SLOW IVP SCH ×2 (15:13→23:54)
[2023-07-08] MEDS: Fluticasone Propionate Nasal Spray 16 gm Bottle NASAL SCH (15:13)
[2023-07-08 15:33] VITALS: BMI 27.7
[2023-07-08] MEDS: Cholecalciferol 1,000 UNITS (25 MCG) TAB PO SCH (20:37)
[2023-07-08] MEDS: Saccharomyces boulardii 250 MG CAP PO SCH (20:38)
[2023-07-08] MEDS: QUEtiapine 100 MG TAB PO SCH (20:38)
[2023-07-08] MEDS: Sodium Chloride 0.65% Nasal 44 ML BOT EA NARE PRN (22:02)
[2023-07-08] MEDS ORDERED: chlordiazePOXIDE HCl 25 MG CAP PO SCH (23:30)
[2023-07-08] MEDS ORDERED: Lorazepam 2 MG/ML VIAL SLOW IVP SCH (23:45)
[2023-07-09 04:16] LABS: #Basophils 0.1 thou/uL (0.0-0.2); #Eosinphils 0.5 thou/uL (0.0-0.7); #Monocytes 1.1 thou/uL (0.11-0.59); #Neutrophils 3.8 thou/uL (1.40-6.50); %Basophils 0.9 % (0.0-1.0); %Lymphocytes 24.9 % (21.0-51.0); %Monocytes 15.4 % (0.0-10.0); %Neutrophils 51.5 % (42.0-75.0); Hematocrit 34.8 % (42.0-52.0); Hemoglobin 11.9 g/dL (14.0-18.0); Mean Corpuscular HGB CONC 34.2 g/dL (32.0-36.0); Mean Corpuscular Hemoglobin 29.5 pg (27.0-31.0); Mean Corpuscular Volume 86.1 fl (78.0-98.0); Mean Platelet Volume 9.8 fL (7.4-10.4); Platelet Count 214 10x3/uL (130-400); RBC Distribution Width 14.9 % (11.5-14.5); Red Blood Cell (RBC) Count 4.04 mill/uL (4.70-6.10); White Blood Cell (WBC) Count 7.4 10x3/uL (4.8-10.8)
[2023-07-09 04:50] LABS: ALT (SGPT) 13 U/L (8-55); AST (SGOT) 23 U/L (5-34); Albumin 3.9 g/dL (3.4-4.8); Alkaline Phosphatase 114 U/L (40-110); Anion Gap 12 mmol/L (10-20); BUN (Urea Nitrogen) 8 mg/dL (8.4-25.7); Bilirubin, Total 1.6 mg/dL (0.2-1.2); CK (CPK) 257 U/L (30-200); Calc. Creatinine Clearance 108 mL/min (70-130); Calcium 9.1 mg/dL (7.8-10.44); Carbon Dioxide 25 mmol/L (23-31); Chloride 107 mmol/L (98-107); Estimated GFR 96; Globulin 2.8 g/dL (2.4-3.5); Glucose 107 mg/dL (80-115); Magnesium 1.9 mg/dL (1.6-2.6); Phosphorus 2.5 mg/dL (2.3-4.7); Potassium 3.4 mmol/L (3.5-5.1); Protein, Total 6.7 g/dL (5.8-8.1); Sodium 141 mmol/L (136-145)
[2023-07-09] MEDS: Levothyroxine Sodium 100 MCG TAB PO SCH (05:44)
[2023-07-09] MEDS: Vancomycin HCl 125 MG Capsule PO SCH (05:44)
[2023-07-09] MEDS: Lorazepam 1 MG TAB PO PRN ×5 (05:44→21:40)
[2023-07-09] MEDS ORDERED: Magnesium 2 GM/50 ML(in water) 2 GM in Premix 1 BAG IVPB SCH (08:00)
[2023-07-09] MEDS ORDERED: Potassium Chloride 20 MEQ TAB PO SCH (08:00)
[2023-07-09] MEDS: pyridOXINE 50 MG (B6) TAB PO SCH (08:40)
[2023-07-09] MEDS: Famotidine 20 MG TAB PO SCH ×2 (08:40→21:40)
[2023-07-09] MEDS: Multivit, Therapeutic 1 TAB PO SCH (08:40)
[2023-07-09] MEDS: Sodium Chloride 0.65% Nasal 44 ML BOT EA NARE PRN (08:41)
[2023-07-09] MEDS: Folic Acid 1 MG TAB PO SCH (08:41)
[2023-07-09] MEDS ORDERED: chlordiazePOXIDE HCl 25 MG CAP PO SCH (09:00)
[2023-07-09] MEDS ORDERED: Methylcellulose 500 MG TAB PO SCH (09:00)
[2023-07-09] MEDS ORDERED: Buprenorphine 8mg/Naloxone 2mg per 1 FILM PO SCH (11:15)
[2023-07-09] MEDS ORDERED: Lorazepam 2 MG/ML VIAL SLOW IVP PRN (12:29)
[2023-07-09] MEDS: Fluticasone Propionate Nasal Spray 16 gm Bottle NASAL SCH (12:54)
[2023-07-09] MEDS: Nicotine 21 MG PATCH TD SCH (14:33)
[2023-07-09] MEDS: chlordiazePOXIDE HCl 25 MG CAP PO SCH ×2 (14:33→21:45)
[2023-07-09] MEDS ORDERED: Thiamine HCl 200 MG/2 ML VIAL SLOW IVP SCH (21:00)
[2023-07-09] MEDS: Mupirocin 2% Ointment 22 GM Tube TOP SCH (21:39)
[2023-07-09] MEDS: QUEtiapine 100 MG TAB PO SCH (21:40)
[2023-07-09] MEDS: Saccharomyces boulardii 250 MG CAP PO SCH (21:41)
[2023-07-09] MEDS: Buprenorphine 8mg/Naloxone 2mg per 1 FILM PO SCH (21:45)
[2023-07-09] MEDS: Cholecalciferol 1,000 UNITS (25 MCG) TAB PO SCH (21:46)
[2023-07-10] MEDS ORDERED: Lorazepam 0.5 MG TAB PO SCH (00:15)
[2023-07-10] MEDS: Multivit, Therapeutic 1 TAB PO SCH (09:27)
[2023-07-10] MEDS: Folic Acid 1 MG TAB PO SCH (09:27)
[2023-07-10] MEDS: pyridOXINE 50 MG (B6) TAB PO SCH (09:27)
[2023-07-10] MEDS: Famotidine 20 MG TAB PO SCH ×2 (09:28→20:47)
[2023-07-10] MEDS: Levothyroxine Sodium 100 MCG TAB PO SCH (09:28)
[2023-07-10] MEDS: Fluticasone Propionate Nasal Spray 16 gm Bottle NASAL SCH (09:28)
[2023-07-10] MEDS: Mupirocin 2% Ointment 22 GM Tube TOP SCH ×3 (09:29→20:48)
[2023-07-10] MEDS: chlordiazePOXIDE HCl 25 MG CAP PO SCH ×2 (09:30→20:47)
[2023-07-10] MEDS: Buprenorphine 8mg/Naloxone 2mg per 1 FILM PO SCH ×2 (09:39→21:45)
[2023-07-10 09:59] LABS: #Basophils 0.1 thou/uL (0.0-0.2); #Eosinphils 0.7 thou/uL (0.0-0.7); #Monocytes 0.8 thou/uL (0.11-0.59); %Basophils 1.5 % (0.0-1.0); %Eosinophils 12.1 % (0.0-10.0); %Lymphocytes 34.6 % (21.0-51.0); %Monocytes 14.3 % (0.0-10.0); %Neutrophils 37.3 % (42.0-75.0); Hematocrit 38.4 % (42.0-52.0); Hemoglobin 12.5 g/dL (14.0-18.0); Mean Corpuscular HGB CONC 32.6 g/dL (32.0-36.0); Mean Corpuscular Hemoglobin 28.9 pg (27.0-31.0); Mean Corpuscular Volume 88.9 fl (78.0-98.0); Mean Platelet Volume 10.4 fL (7.4-10.4); Platelet Count 215 10x3/uL (130-400); RBC Distribution Width 14.9 % (11.5-14.5); Red Blood Cell (RBC) Count 4.32 mill/uL (4.70-6.10); White Blood Cell (WBC) Count 5.4 10x3/uL (4.8-10.8)
[2023-07-10 10:23] LABS: ALT (SGPT) 10 U/L (8-55); AST (SGOT) 17 U/L (5-34); Albumin 3.7 g/dL (3.4-4.8); Alkaline Phosphatase 106 U/L (40-110); Anion Gap 15 mmol/L (10-20); BUN (Urea Nitrogen) 6 mg/dL (8.4-25.7); Bilirubin, Total 0.7 mg/dL (0.2-1.2); Calc. Creatinine Clearance 117 mL/min (70-130); Calcium 9.3 mg/dL (7.8-10.44); Carbon Dioxide 25 mmol/L (23-31); Chloride 105 mmol/L (98-107); Estimated GFR 99; Glucose 93 mg/dL (80-115); Potassium 3.8 mmol/L (3.5-5.1); Protein, Total 6.7 g/dL (5.8-8.1); Sodium 141 mmol/L (136-145)
[2023-07-10 16:09] LABS: Magnesium 1.9 mg/dL (1.6-2.6)
[2023-07-10] MEDS: Nicotine 21 MG PATCH TD SCH (16:25)
[2023-07-10] MEDS: Lorazepam 0.5 MG TAB PO PRN (18:50)
[2023-07-10] MEDS: Saccharomyces boulardii 250 MG CAP PO SCH (20:46)
[2023-07-10] MEDS: Thiamine 100 MG TAB PO SCH (20:46)
[2023-07-10] MEDS: Cholecalciferol 1,000 UNITS (25 MCG) TAB PO SCH (20:47)
[2023-07-10] MEDS: QUEtiapine 100 MG TAB PO SCH (20:47)
[2023-07-11] MEDS ORDERED: Thiamine 100 MG TAB PO SCH (00:15)
[2023-07-11] MEDS: Lorazepam 0.5 MG TAB PO PRN ×4 (02:05→18:26)
[2023-07-11 05:26] LABS: #Basophils 0.1 thou/uL (0.0-0.2); #Eosinphils 0.7 thou/uL (0.0-0.7); #Monocytes 0.8 thou/uL (0.11-0.59); #Neutrophils 2.4 thou/uL (1.40-6.50); %Basophils 0.9 % (0.0-1.0); %Eosinophils 11.7 % (0.0-10.0); %Lymphocytes 30.1 % (21.0-51.0); %Monocytes 13.7 % (0.0-10.0); %Neutrophils 43.4 % (42.0-75.0); Hematocrit 36.1 % (42.0-52.0); Hemoglobin 12.2 g/dL (14.0-18.0); Mean Corpuscular HGB CONC 33.8 g/dL (32.0-36.0); Mean Corpuscular Hemoglobin 29.8 pg (27.0-31.0); Mean Corpuscular Volume 88.3 fl (78.0-98.0); Mean Platelet Volume 9.6 fL (7.4-10.4); Platelet Count 215 10x3/uL (130-400); RBC Distribution Width 14.7 % (11.5-14.5); Red Blood Cell (RBC) Count 4.09 mill/uL (4.70-6.10); White Blood Cell (WBC) Count 5.6 10x3/uL (4.8-10.8)
[2023-07-11] MEDS: Levothyroxine Sodium 100 MCG TAB PO SCH (06:23)
[2023-07-11 07:08] LABS: ALT (SGPT) 9 U/L (8-55); AST (SGOT) 14 U/L (5-34); Albumin 3.6 g/dL (3.4-4.8); Alkaline Phosphatase 94 U/L (40-110); Anion Gap 15 mmol/L (10-20); BUN (Urea Nitrogen) 8 mg/dL (8.4-25.7); Bilirubin, Total 0.3 mg/dL (0.2-1.2); Calc. Creatinine Clearance 114 mL/min (70-130); Carbon Dioxide 25 mmol/L (23-31); Chloride 103 mmol/L (98-107); Estimated GFR 98; Globulin 2.6 g/dL (2.4-3.5); Glucose 94 mg/dL (80-115); Potassium 3.5 mmol/L (3.5-5.1); Protein, Total 6.2 g/dL (5.8-8.1); Sodium 139 mmol/L (136-145)
[2023-07-11] MEDS ORDERED: DICLOFENAC 50 MG PO SCH (09:00)
[2023-07-11] MEDS: Folic Acid 1 MG TAB PO SCH (09:12)
[2023-07-11] MEDS: Cyclobenzaprine 10 MG TAB PO SCH ×2 (09:12→22:17)
[2023-07-11] MEDS: chlordiazePOXIDE HCl 25 MG CAP PO SCH ×2 (09:12→22:15)
[2023-07-11] MEDS: Multivit, Therapeutic 1 TAB PO SCH (09:12)
[2023-07-11] MEDS: Magnesium Oxide 400 MG TAB PO SCH (09:13)
[2023-07-11] MEDS: Venlafaxine HCl 25 MG TAB PO SCH (09:13)
[2023-07-11] MEDS: Famotidine 20 MG TAB PO SCH ×2 (09:13→22:17)
[2023-07-11] MEDS: Buprenorphine 8mg/Naloxone 2mg per 1 FILM PO SCH ×2 (09:14→22:18)
[2023-07-11] MEDS: Mupirocin 2% Ointment 22 GM Tube TOP SCH ×3 (09:14→22:18)
[2023-07-11] MEDS: Fluticasone Propionate Nasal Spray 16 gm Bottle NASAL SCH (09:15)
[2023-07-11] MEDS: Nicotine 21 MG PATCH TD SCH (13:44)
[2023-07-11] MEDS: pyridOXINE 50 MG (B6) TAB PO SCH (13:44)
[2023-07-11] MEDS: Thiamine 100 MG TAB PO SCH (22:15)
[2023-07-11] MEDS: QUEtiapine 100 MG TAB PO SCH (22:15)
[2023-07-11] MEDS: Gabapentin 300 MG CAP PO SCH (22:16)
[2023-07-11] MEDS: Cholecalciferol 1,000 UNITS (25 MCG) TAB PO SCH (22:17)
[2023-07-11] MEDS: Diclofenac 25 MG TABDR...ER PO SCH (22:17)
[2023-07-11] MEDS: Saccharomyces boulardii 250 MG CAP PO SCH (22:17)
[2023-07-12] MEDS: Sodium Chloride 0.65% Nasal 44 ML BOT EA NARE PRN ×2 (01:14→09:48)
[2023-07-12 05:56] LABS: #Basophils 0.1 thou/uL (0.0-0.2); #Eosinphils 0.7 thou/uL (0.0-0.7); #Monocytes 0.8 thou/uL (0.11-0.59); #Neutrophils 2.3 thou/uL (1.40-6.50); %Basophils 1.5 % (0.0-1.0); %Eosinophils 12.9 % (0.0-10.0); %Lymphocytes 28.9 % (21.0-51.0); %Monocytes 14.9 % (0.0-10.0); %Neutrophils 41.6 % (42.0-75.0); Hemoglobin 11.4 g/dL (14.0-18.0); Mean Corpuscular HGB CONC 32.6 g/dL (32.0-36.0); Mean Corpuscular Hemoglobin 29.6 pg (27.0-31.0); Mean Corpuscular Volume 90.9 fl (78.0-98.0); Mean Platelet Volume 9.4 fL (7.4-10.4); Platelet Count 211 10x3/uL (130-400); RBC Distribution Width 14.6 % (11.5-14.5); Red Blood Cell (RBC) Count 3.85 mill/uL (4.70-6.10); White Blood Cell (WBC) Count 5.4 10x3/uL (4.8-10.8)
[2023-07-12] MEDS: Levothyroxine Sodium 100 MCG TAB PO SCH (05:58)
[2023-07-12 06:27] LABS: ALT (SGPT) 10 U/L (8-55); AST (SGOT) 21 U/L (5-34); Albumin 3.3 g/dL (3.4-4.8); Alkaline Phosphatase 84 U/L (40-110); Anion Gap 16 mmol/L (10-20); BUN (Urea Nitrogen) 9 mg/dL (8.4-25.7); Bilirubin, Total 0.4 mg/dL (0.2-1.2); Calc. Creatinine Clearance 118 mL/min (70-130); Calcium 8.8 mg/dL (7.8-10.44); Carbon Dioxide 21 mmol/L (23-31); Chloride 103 mmol/L (98-107); Estimated GFR 99; Globulin 3.1 g/dL (2.4-3.5); Glucose 80 mg/dL (80-115); Protein, Total 6.4 g/dL (5.8-8.1); Sodium 136 mmol/L (136-145)
[2023-07-12] MEDS ORDERED: chlordiazePOXIDE HCl 25 MG CAP PO SCH (09:00)
[2023-07-12] MEDS: Cyclobenzaprine 10 MG TAB PO SCH ×2 (09:39→21:11)
[2023-07-12] MEDS: Diclofenac 25 MG TABDR...ER PO SCH (09:39)
[2023-07-12] MEDS: Gabapentin 300 MG CAP PO SCH ×2 (09:42→21:12)
[2023-07-12] MEDS: Famotidine 20 MG TAB PO SCH ×2 (09:43→21:10)
[2023-07-12] MEDS: Folic Acid 1 MG TAB PO SCH (09:43)
[2023-07-12] MEDS: Multivit, Therapeutic 1 TAB PO SCH (09:44)
[2023-07-12] MEDS: Magnesium Oxide 400 MG TAB PO SCH (09:44)
[2023-07-12] MEDS: Fluticasone Propionate Nasal Spray 16 gm Bottle NASAL SCH (09:45)
[2023-07-12] MEDS: Mupirocin 2% Ointment 22 GM Tube TOP SCH ×3 (09:48→21:10)
[2023-07-12] MEDS: Venlafaxine HCl 25 MG TAB PO SCH (09:49)
[2023-07-12] MEDS: Buprenorphine 8mg/Naloxone 2mg per 1 FILM PO SCH ×2 (10:02→21:14)
[2023-07-12] MEDS: pyridOXINE 50 MG (B6) TAB PO SCH (10:03)
[2023-07-12] MEDS: Lactated Ringer's 500 ML IV SCH ×2 (10:03→21:10)
[2023-07-12] MEDS: Nicotine 21 MG PATCH TD SCH (13:34)
[2023-07-12] MEDS: Saccharomyces boulardii 250 MG CAP PO SCH (21:11)
[2023-07-12] MEDS: Cholecalciferol 1,000 UNITS (25 MCG) TAB PO SCH (21:11)
[2023-07-12] MEDS: Thiamine 100 MG TAB PO SCH (21:13)
[2023-07-12] MEDS: QUEtiapine 100 MG TAB PO SCH (21:13)
[2023-07-13] MEDS: Diclofenac 25 MG TABDR...ER PO SCH ×2 (00:22→09:01)
[2023-07-13 03:46] LABS: #Basophils 0.1 thou/uL (0.0-0.2); #Eosinphils 0.9 thou/uL (0.0-0.7); #Monocytes 0.7 thou/uL (0.11-0.59); #Neutrophils 2.1 thou/uL (1.40-6.50); %Basophils 1.1 % (0.0-1.0); %Eosinophils 17.3 % (0.0-10.0); %Lymphocytes 27.6 % (21.0-51.0); %Monocytes 13.3 % (0.0-10.0); %Neutrophils 40.3 % (42.0-75.0); Hematocrit 36.7 % (42.0-52.0); Hemoglobin 12.1 g/dL (14.0-18.0); Mean Corpuscular Hemoglobin 29.5 pg (27.0-31.0); Mean Corpuscular Volume 89.5 fl (78.0-98.0); Mean Platelet Volume 9.3 fL (7.4-10.4); Platelet Count 232 10x3/uL (130-400); RBC Distribution Width 14.6 % (11.5-14.5); White Blood Cell (WBC) Count 5.3 10x3/uL (4.8-10.8)
[2023-07-13] MEDS: Lactated Ringer's 500 ML IV SCH (04:15)
[2023-07-13 04:17] LABS: ALT (SGPT) 11 U/L (8-55); AST (SGOT) 18 U/L (5-34); Albumin 3.6 g/dL (3.4-4.8); Alkaline Phosphatase 85 U/L (40-110); Anion Gap 11 mmol/L (10-20); BUN (Urea Nitrogen) 9 mg/dL (8.4-25.7); Bilirubin, Total 0.3 mg/dL (0.2-1.2); Calc. Creatinine Clearance 110 mL/min (70-130); Calcium 8.9 mg/dL (7.8-10.44); Carbon Dioxide 28 mmol/L (23-31); Chloride 103 mmol/L (98-107); Estimated GFR 97; Globulin 2.9 g/dL (2.4-3.5); Glucose 87 mg/dL (80-115); Potassium 4.2 mmol/L (3.5-5.1); Protein, Total 6.5 g/dL (5.8-8.1); Sodium 138 mmol/L (136-145)
[2023-07-13 04:24] VITALS: TEMP 97.5
[2023-07-13] MEDS: Levothyroxine Sodium 100 MCG TAB PO SCH (06:51)
[2023-07-13 08:24] VITALS: BP 114/72
[2023-07-13] MEDS: Buprenorphine 8mg/Naloxone 2mg per 1 FILM PO SCH (08:58)
[2023-07-13] MEDS: Gabapentin 300 MG CAP PO SCH (08:59)
[2023-07-13] MEDS: Venlafaxine HCl 25 MG TAB PO SCH (09:01)
[2023-07-13] MEDS: Multivit, Therapeutic 1 TAB PO SCH (09:03)
[2023-07-13] MEDS: pyridOXINE 50 MG (B6) TAB PO SCH (09:03)
[2023-07-13] MEDS: Magnesium Oxide 400 MG TAB PO SCH (09:03)
[2023-07-13] MEDS: Folic Acid 1 MG TAB PO SCH (09:03)
[2023-07-13] MEDS: Cyclobenzaprine 10 MG TAB PO SCH (09:04)
[2023-07-13] MEDS: Famotidine 20 MG TAB PO SCH (09:04)
[2023-07-13] MEDS: Fluticasone Propionate Nasal Spray 16 gm Bottle NASAL SCH (09:05)
[2023-07-13] MEDS: Mupirocin 2% Ointment 22 GM Tube TOP SCH (09:06)
[2023-07-13] MEDS: Nicotine 21 MG PATCH TD SCH (13:55)
== END 2023-07-13 14:35 | disposition home or self-care (01) | DRG 896 ==
LOC: ERS 20:31 → ERHOLD 23:32 → 2NO 07-08 15:04 → MSONC 07-10 17:26
PROVIDERS: ADMIT Family Medicine; ATTEND Internal Medicine
DX: F10.239 Alcohol dependence with withdrawal, unspecified (principal); G92.8 Other toxic encephalopathy; E03.9 Hypothyroidism, unspecified; F41.9 Anxiety disorder, unspecified; F17.210 Nicotine dependence, cigarettes, uncomplicated; G62.9 Polyneuropathy, unspecified; F31.9 Bipolar disorder, unspecified; R09.81 Nasal congestion; G47.00 Insomnia, unspecified; D64.9 Anemia, unspecified; E87.6 Hypokalemia; E83.42 Hypomagnesemia; Z98.890 Other specified postprocedural states; Z79.51 Long term (current) use of inhaled steroids; Z79.899 Other long term (current) drug therapy
CPT/HCPCS: 36415; 36416; 70450; 71045; 80053; 80306; 80307; 81001; 82010; 82140; 82248; 82550; 82607; 83690; 83735; 84100; 84425; 84443; 84484; 85025; 93005; 96365; 96366; 96367; J0571; J1650; J2060; J2405; J3411; J3475; J7042; J7120; Q0162

== ENCOUNTER 2024-06-23 01:05 | Emergency (ER) | payer MEDICARE ==
[2024-06-23] MEDS ORDERED: Aspirin Chewable 81 MG TAB ONE (01:43)
[2024-06-23 02:04] LABS: #Basophils 0.07 10x3/uL (0.0-0.2); %Basophils 0.7 % (0.0-1.0); %Eosinophils 2.9 % (0.0-10.0); %Lymphocytes 20.2 % (21.0-51.0); %Monocytes 9.7 % (0.0-10.0); %Neutrophils 66.2 % (42.0-75.0); Hematocrit 39.9 % (42.0-52.0); Mean Corpuscular HGB CONC 35.1 g/dL (32.0-36.0); Mean Corpuscular Hemoglobin 30.2 pg (27.0-31.0); Mean Platelet Volume 9.9 fL (7.4-10.4); Platelet Count 220 10x3/uL (130-400); RBC Distribution Width 13.2 % (11.5-14.5); Red Blood Cell (RBC) Count 4.64 mill/uL (4.70-6.10)
[2024-06-23 02:19] LABS: ALT (SGPT) 23 U/L (8-55); AST (SGOT) 40 U/L (5-34); Albumin 4.1 g/dL (3.4-4.8); Alkaline Phosphatase 58 U/L (40-110); Anion Gap 13 mmol/L (10-20); BUN (Urea Nitrogen) 21 mg/dL (8.4-25.7); Bilirubin, Total 0.3 mg/dL (0.2-1.2); Calc. Creatinine Clearance 0 mL/min (70-130); Calcium 8.9 mg/dL (7.8-10.44); Carbon Dioxide 27 mmol/L (23-31); Chloride 101 mmol/L (98-107); Estimated GFR 64; Globulin 2.6 g/dL (2.4-3.5); Glucose 102 mg/dL (80-115); Potassium 3.9 mmol/L (3.5-5.1); Protein, Total 6.7 g/dL (5.8-8.1); Sodium 137 mmol/L (136-145)
[2024-06-23 02:23] LABS: Troponin I 0.012 ng/mL (< 0.028)
[2024-06-23 04:17] LABS: Bacteria/HPF None Seen HPF (None Seen); Bilirubin Negative (Negative); Blood, Urine Negative (Negative); CAUTI Indications for Culture Pelvic or flank pain; Clarity Clear (Clear); Glucose, Urine (Dipstick) Normal (Negative); Ketone, Urine Negative (Negative); Leukocyte Negative Leu/uL (Negative); Nitrite Negative (Negative); Protein, Urine (Dipstick) Negative (Neg-Trace); RBC/HPF None Seen HPF (0-3); Specific Gravity, Urine 1.017 (1.002-1.036); Squamous Epithelial None Seen HPF (0-3); Urobilinogen Normal mg/dL (Less than 2); WBC/HPF 0-3 HPF (0-3); pH, Urine 5.5 (5.0-9.0)
[2024-06-23 04:34] LABS: Troponin I Less than 0.010 ng/mL (< 0.028)
[2024-06-23 04:37] LABS: Urine Culture Reflex No No
[2024-06-23 04:49] LABS: Amphetamine Not Detected (NotDetected); Barbiturates Screen Not Detected (NotDetected); Benzodiazepine Screen Detected (NotDetected); Cocaine Metabolite Screen Not Detected (NotDetected); Methadone Not Detected (NotDetected); Methamphetamine Not Detected (NotDetected); Opiate Screen Not Detected (NotDetected); Oxycodone Screen Not Detected (NotDetected); Phencyclidine (PCP) Not Detected (NotDetected); THC/Cannabinoid Screen Not Detected (NotDetected); Tricyclic Screen Not Detected (NotDetected)
== END 2024-06-23 05:46 | disposition home or self-care (01) ==
LOC: ERS 01:05
DX: I95.9 Hypotension, unspecified (principal); R07.9 Chest pain, unspecified; Z55.0 Illiteracy and low-level literacy; E03.9 Hypothyroidism, unspecified; F17.290 Nicotine dependence, other tobacco product, uncomplicated; Z79.890 Hormone replacement therapy; Z79.899 Other long term (current) drug therapy
CPT/HCPCS: 36415; 71045; 80053; 80306; 81001; 84484; 85025; 93005; 94760

== ENCOUNTER 2025-04-07 10:10 | Emergency (ER) | payer MEDICARE ==
[2025-04-07 10:55] LABS: #Basophils 0.08 10x3/uL (0.0-0.2); #Eosinophils 0.39 10x3/uL (0.0-0.7); #Monocytes 1.21 10x3/uL (0.11-0.59); #Neutrophils 10.68 10x3/uL (1.40-6.50); %Basophils 0.5 % (0.0-1.0); %Eosinophils 2.6 % (0.0-10.0); %Lymphocytes 15.7 % (21.0-51.0); %Monocytes 8.1 % (0.0-10.0); %Neutrophils 71.8 % (42.0-75.0); Hematocrit 44.4 % (42.0-52.0); Hemoglobin 14.4 g/dL (14.0-18.0); Mean Corpuscular Hemoglobin 28.1 pg (27.0-31.0); Mean Corpuscular Volume 86.7 fL (78.0-98.0); Platelet Count 249 10x3/uL (130-400); Red Blood Cell (RBC) Count 5.12 mill/uL (4.70-6.10); White Blood Cell (WBC) Count 14.88 10x3/uL (4.8-10.8)
[2025-04-07 11:21] LABS: ALT (SGPT) 17 U/L (Less than 45); AST (SGOT) 22 U/L (11-34); Albumin 4.2 g/dL (3.1-4.5); Alkaline Phosphatase 54 U/L (40-110); Anion Gap 15 mmol/L (10-20); BUN (Urea Nitrogen) 11 mg/dL (8.4-25.7); Bilirubin, Total 0.2 mg/dL (0.3-1.2); Calc. Creatinine Clearance 0 mL/min (70-130); Calcium 9.3 mg/dL (7.8-10.44); Carbon Dioxide 25 mmol/L (23-31); Chloride 103 mmol/L (98-107); Globulin 2.6 g/dL (2.4-3.5); Glucose 101 mg/dL (80-115); Potassium 4.2 mmol/L (3.5-5.1); Sodium 139 mmol/L (136-145)
[2025-04-07] MEDS ORDERED: Ketorolac Tromethamine 30 MG (1 mL) VIAL ONE (11:21)
== END 2025-04-07 15:10 | disposition home or self-care (01) ==
LOC: ERS 10:10
DX: S80.01XA Contusion of right knee, initial encounter (principal); J18.9 Pneumonia, unspecified organism; F17.290 Nicotine dependence, other tobacco product, uncomplicated; E03.9 Hypothyroidism, unspecified; X58.XXXA Exposure to other specified factors, initial encounter; Z55.6 Problems related to health literacy
CPT/HCPCS: 71045; 73564; 73700; 80053; 85025; 87428; 93971; J1885; J2270; 36415; 96374; 96375; 96376

== ENCOUNTER 2025-06-03 11:51 | Outpatient (CLI) | payer MEDICARE | END 2025-06-03 11:52 | disposition home or self-care (01) | LOC: BICRAD 11:51 | PROVIDERS: ATTEND Physician Assistant | DX: M54.50 Low back pain, unspecified (principal); M47.816 Spondylosis without myelopathy or radiculopathy, lumbar region; Z98.890 Other specified postprocedural states | CPT/HCPCS: 72100 ==

== ENCOUNTER 2025-06-24 16:10 | Emergency (ER) | payer MEDICARE | END 2025-06-24 17:39 | disposition home or self-care (01) | LOC: ERS 16:10 | DX: G89.29 Other chronic pain (principal); M54.50 Low back pain, unspecified; F17.290 Nicotine dependence, other tobacco product, uncomplicated | CPT/HCPCS: 99283 ==

== ENCOUNTER 2025-07-02 13:52 | Inpatient (IN) | payer MEDICARE ==
[2025-07-02] MEDS ORDERED: Albuterol 200 PUFF INH INH PRN (17:09)
[2025-07-02] MEDS ORDERED: Ondansetron PF 4 MG/2 ML Vial IVP PRN (17:09)
[2025-07-02] MEDS ORDERED: HYDROcodone/Acetaminophen 10/325 mg Tablet PO PRN (17:09)
[2025-07-02] MEDS ORDERED: Ketorolac Tromethamine 30 MG (1 mL) VIAL IVP PRN (17:09)
[2025-07-02] MEDS ORDERED: Acetaminophen 325 MG TAB PO PRN (17:09)
[2025-07-02] MEDS ORDERED: diphenhydrAMINE 25 MG CAP PO PRN (17:09)
[2025-07-02] MEDS ORDERED: QUEtiapine 25 MG TAB PO PRN (17:09)
[2025-07-02] MEDS ORDERED: Pharmacy to Dose: VANCOMYCIN IVPB PRN (17:36)
[2025-07-02] MEDS: HYDROcodone/Acetaminophen 10/325 mg Tablet PO PRN (18:32)
[2025-07-02] MEDS: Gabapentin 300 MG CAP PO SCH (19:59)
[2025-07-02] MEDS: Cyclobenzaprine 10 MG TAB PO SCH (20:00)
[2025-07-02] MEDS ORDERED: Oxymetazoline HCl 0.05% (30 ML BOT) NS PRN (20:50)
[2025-07-02] MEDS ORDERED: QUEtiapine 300 MG TAB PO SCH (21:00)
[2025-07-02] MEDS: Diphenoxylate HCl/Atropine Tablet PO SCH (21:22)
[2025-07-02 22:28] VITALS: BMI 30.7
[2025-07-02] MEDS: clonazePAM 1 MG TAB PO PRN (22:30)
[2025-07-03] MEDS: Vancomycin 1.25 GM / NS 250 ML VIAL-2-BAG IVPB SCH ×3 (00:31→12:40)
[2025-07-03 06:09] LABS: Vancomycin, Random 16.2 ug/mL (See Comment)
[2025-07-03 06:12] LABS: Anion Gap 14 mmol/L (10-20); BUN (Urea Nitrogen) 12 mg/dL (8.4-25.7); Calc. Creatinine Clearance 128 mL/min (70-130); Calcium 9.1 mg/dL (7.8-10.44); Carbon Dioxide 28 mmol/L (23-31); Chloride 100 mmol/L (98-107); Glucose 102 mg/dL (80-115); Potassium 4.1 mmol/L (3.5-5.1); Sodium 138 mmol/L (136-145)
[2025-07-03] MEDS: Senokot S 8.6-50 MG TAB PO SCH (08:51)
[2025-07-03] MEDS: Magnesium Oxide 400 MG TAB PO SCH (08:51)
[2025-07-03] MEDS: pyridOXINE 50 MG (B6) TAB PO SCH (08:52)
[2025-07-03] MEDS: Multivitamin W/ Minerals 1 TAB PO SCH (08:52)
[2025-07-03] MEDS ORDERED: Multivit, Therapeutic 1 TAB PO SCH (09:00)
[2025-07-03] MEDS: FLU (Fluad Triv) 25-26 (65UP)PF 45 MCG/0.5 ML Syringe IM ONE (13:44)
[2025-07-03] MEDS: PNEUMOC 20-VAL CONJ-DIP CRM/PF 0.5 ML SYRINGE IM ONE (13:44)
[2025-07-03] MEDS: cefTRIAXone\\ROCEPHIN 2 GM in Sodium Chloride 0.9% 100 ML IVPB SCH (14:51)
[2025-07-03] MEDS: Thiamine 100 MG TAB PO SCH (21:20)
[2025-07-04] MEDS ORDERED: Ondansetron PF 4 MG/2 ML Vial ONE (07:17)
[2025-07-04] MEDS ORDERED: fentaNYL PF 100 MCG/2 ML SYRINGE ONE ×3 (07:17→13:31)
[2025-07-04] MEDS ORDERED: Lidocaine 1% PF 5 ML VIAL ONE (07:17)
[2025-07-04] MEDS ORDERED: Glycopyrrolate 0.2 MG/ML 5 ML SYRINGE ONE (07:27)
[2025-07-04] MEDS ORDERED: PHENYLEPHRINE-NS 100 MCG/ML 10 ML SYRINGE ONE ×2 (07:27→10:49)
[2025-07-04] MEDS ORDERED: Bupivacaine 0.25% HCL 30 ML VIAL ONE (07:43)
[2025-07-04] MEDS ORDERED: HYDROmorphone 2 MG/ML VIAL ONE (08:16)
[2025-07-04] MEDS ORDERED: Ketamine In 0.9 % NaCl 50 MG/5 ML SYRINGE ONE (08:17)
[2025-07-04] MEDS ORDERED: Albuterol HFA (OR) 200 PUFF INH ONE (08:31)
[2025-07-04] MEDS ORDERED: Lisinopril 10 MG TAB PO SCH (09:00)
[2025-07-04] MEDS ORDERED: Tranexamic Acid 1,000 MG/10 ML VIAL ONE (09:05)
[2025-07-04] MEDS: Lisinopril 10 MG TAB PO SCH (09:19)
[2025-07-04 15:22] LABS: Anion Gap 17 mmol/L (10-20); BUN (Urea Nitrogen) 17 mg/dL (8.4-25.7); Calc. Creatinine Clearance 115 mL/min (70-130); Calcium 8.8 mg/dL (7.8-10.44); Carbon Dioxide 22 mmol/L (23-31); Chloride 102 mmol/L (98-107); Glucose 102 mg/dL (80-115); Potassium 4.4 mmol/L (3.5-5.1); Sodium 137 mmol/L (136-145)
[2025-07-05 06:12] LABS: #Basophils Less than 0.03 10x3/uL (0.0-0.2); #Eosinophils Less than 0.03 10x3/uL (0.0-0.7); #Monocytes 1.85 10x3/uL (0.11-0.59); #Neutrophils 13.44 10x3/uL (1.40-6.50); %Basophils 0.1 % (0.0-1.0); %Eosinophils 0.0 % (0.0-10.0); %Lymphocytes 5.0 % (21.0-51.0); %Monocytes 11.3 % (0.0-10.0); %Neutrophils 82.5 % (42.0-75.0); Hematocrit 35.9 % (42.0-52.0); Hemoglobin 12.0 g/dL (14.0-18.0); Mean Corpuscular Hemoglobin 29.8 pg (27.0-31.0); Mean Corpuscular Volume 89.1 fL (78.0-98.0); Platelet Count 189 10x3/uL (130-400); Red Blood Cell (RBC) Count 4.03 mill/uL (4.70-6.10); White Blood Cell (WBC) Count 16.30 10x3/uL (4.8-10.8)
[2025-07-05 06:29] LABS: Vancomycin, Random 14.5 ug/mL (See Comment)
[2025-07-05 06:31] LABS: Anion Gap 15 mmol/L (10-20); BUN (Urea Nitrogen) 12 mg/dL (8.4-25.7); Calc. Creatinine Clearance 147 mL/min (70-130); Calcium 8.7 mg/dL (7.8-10.44); Carbon Dioxide 28 mmol/L (23-31); Chloride 101 mmol/L (98-107); Glucose 129 mg/dL (80-115); Potassium 4.1 mmol/L (3.5-5.1); Sodium 140 mmol/L (136-145)
[2025-07-05] MEDS: Pentazocine HCl/Naloxone HCl 50/0.5 MG TAB PO SCH ×2 (09:41→12:43)
[2025-07-05] MEDS: Pentazocine HCl/Naloxone HCl 50/0.5 MG TAB PO PRN ×2 (15:53→20:02)
[2025-07-06 05:11] LABS: #Basophils 0.04 10x3/uL (0.0-0.2); #Eosinophils 0.06 10x3/uL (0.0-0.7); #Monocytes 1.37 10x3/uL (0.11-0.59); #Neutrophils 9.17 10x3/uL (1.40-6.50); %Basophils 0.3 % (0.0-1.0); %Eosinophils 0.5 % (0.0-10.0); %Lymphocytes 10.7 % (21.0-51.0); %Monocytes 11.3 % (0.0-10.0); %Neutrophils 75.9 % (42.0-75.0); Hematocrit 34.0 % (42.0-52.0); Hemoglobin 11.4 g/dL (14.0-18.0); Mean Corpuscular Hemoglobin 29.5 pg (27.0-31.0); Mean Corpuscular Volume 88.1 fL (78.0-98.0); Platelet Count 219 10x3/uL (130-400); Red Blood Cell (RBC) Count 3.86 mill/uL (4.70-6.10); White Blood Cell (WBC) Count 12.09 10x3/uL (4.8-10.8)
[2025-07-06 05:34] LABS: Anion Gap 14 mmol/L (10-20); BUN (Urea Nitrogen) 10 mg/dL (8.4-25.7); Calc. Creatinine Clearance 131 mL/min (70-130); Calcium 8.3 mg/dL (7.8-10.44); Carbon Dioxide 29 mmol/L (23-31); Chloride 103 mmol/L (98-107); Glucose 95 mg/dL (80-115); Potassium 3.8 mmol/L (3.5-5.1); Sodium 142 mmol/L (136-145)
[2025-07-06] MEDS: Ketorolac Tromethamine 30 MG (1 mL) VIAL IVP SCH ×2 (15:23→18:12)
[2025-07-07 04:48] LABS: #Basophils 0.07 10x3/uL (0.0-0.2); #Eosinophils 0.25 10x3/uL (0.0-0.7); #Monocytes 0.86 10x3/uL (0.11-0.59); #Neutrophils 8.50 10x3/uL (1.40-6.50); %Basophils 0.6 % (0.0-1.0); %Eosinophils 2.1 % (0.0-10.0); %Lymphocytes 14.2 % (21.0-51.0); %Monocytes 7.2 % (0.0-10.0); %Neutrophils 71.3 % (42.0-75.0); Hematocrit 38.9 % (42.0-52.0); Hemoglobin 12.3 g/dL (14.0-18.0); Mean Corpuscular Hemoglobin 28.5 pg (27.0-31.0); Mean Corpuscular Volume 90.3 fL (78.0-98.0); Platelet Count 264 10x3/uL (130-400); Red Blood Cell (RBC) Count 4.31 mill/uL (4.70-6.10); White Blood Cell (WBC) Count 11.93 10x3/uL (4.8-10.8)
[2025-07-07 05:06] LABS: Anion Gap 15 mmol/L (10-20); BUN (Urea Nitrogen) 13 mg/dL (8.4-25.7); Calc. Creatinine Clearance 108 mL/min (70-130); Calcium 9.2 mg/dL (7.8-10.44); Carbon Dioxide 32 mmol/L (23-31); Chloride 99 mmol/L (98-107); Glucose 119 mg/dL (80-115); Potassium 4.0 mmol/L (3.5-5.1); Sodium 142 mmol/L (136-145)
[2025-07-07] MEDS ORDERED: Pentazocine HCl/Naloxone HCl 50/0.5 MG TAB PO SCH (10:00)
[2025-07-07] MEDS: Pentazocine HCl/Naloxone HCl 50/0.5 MG TAB PO SCH ×2 (10:12→12:20)
[2025-07-08] MEDS ORDERED: HYDROcodone/Acetaminophen 10/325 mg Tablet PO SCH (01:45)
[2025-07-08] MEDS: Pentazocine HCl/Naloxone HCl 50/0.5 MG TAB PO SCH (01:46)
[2025-07-08] MEDS: Levothyroxine 150 MCG TAB PO SCH (05:22)
[2025-07-08 06:34] LABS: Hematocrit 39.9 % (42.0-52.0); Hemoglobin 12.8 g/dL (14.0-18.0); Mean Corpuscular Hemoglobin 28.5 pg (27.0-31.0); Mean Corpuscular Volume 88.9 fL (78.0-98.0); Platelet Count 345 10x3/uL (130-400); Red Blood Cell (RBC) Count 4.49 mill/uL (4.70-6.10); White Blood Cell (WBC) Count 14.59 10x3/uL (4.8-10.8)
[2025-07-08 06:46] LABS: Anion Gap 15 mmol/L (10-20); BUN (Urea Nitrogen) 14 mg/dL (8.4-25.7); Calc. Creatinine Clearance 102 mL/min (70-130); Calcium 9.2 mg/dL (7.8-10.44); Carbon Dioxide 28 mmol/L (23-31); Chloride 97 mmol/L (98-107); Glucose 80 mg/dL (80-115); Potassium 4.3 mmol/L (3.5-5.1); Sodium 136 mmol/L (136-145)
[2025-07-08 07:02] LABS: Platelet Adequacy Comment Platelets Decreased; Polychromasia SLIGHT = 2-3 cells HPF (0-2); Smudge Cells 3.0 %
[2025-07-08] MEDS ORDERED: Non-Formulary Item 1 EACH (Fluoxetine Hcl [Fluoxetine Hcl] 40 MG Capsule) PO SCH (09:00)
[2025-07-08] MEDS ORDERED: Levothyroxine 150 MCG TAB PO SCH (09:00)
[2025-07-09 05:16] LABS: Hematocrit 35.4 % (42.0-52.0); Hemoglobin 11.6 g/dL (14.0-18.0); Mean Corpuscular Hemoglobin 28.7 pg (27.0-31.0); Mean Corpuscular Volume 87.6 fL (78.0-98.0); Platelet Count 337 10x3/uL (130-400); Red Blood Cell (RBC) Count 4.04 mill/uL (4.70-6.10); White Blood Cell (WBC) Count 13.37 10x3/uL (4.8-10.8)
[2025-07-09 06:30] LABS: Platelet Adequacy Comment Platelets Normal; Polychromasia SLIGHT = 2-3 cells HPF (0-2); Smudge Cells 1.0 %
[2025-07-09 09:39] VITALS: BMI 30.7
[2025-07-10 05:08] LABS: Hematocrit 33.7 % (42.0-52.0); Hemoglobin 11.0 g/dL (14.0-18.0); Mean Corpuscular Hemoglobin 28.6 pg (27.0-31.0); Mean Corpuscular Volume 87.5 fL (78.0-98.0); Platelet Count 334 10x3/uL (130-400); Red Blood Cell (RBC) Count 3.85 mill/uL (4.70-6.10); White Blood Cell (WBC) Count 10.28 10x3/uL (4.8-10.8)
[2025-07-10 05:32] LABS: Anisocytosis SLIGHT = 6-15 cells HPF (0-5); Platelet Adequacy Comment Platelets Normal; Polychromasia SLIGHT = 2-3 cells HPF (0-2)
[2025-07-12] MEDS: Ketorolac Tromethamine 30 MG (1 mL) VIAL IVP SCH (04:24)
[2025-07-12] MEDS ORDERED: Lidocaine 1% w/Epinephrine 1:100K 20 ML VIAL ONE (08:23)
[2025-07-12] MEDS ORDERED: Sodium Bicarbonate 2.5 MEQ/5 ML SDV ONE (08:23)
[2025-07-13] MEDS: Pentazocine HCl/Naloxone HCl 50/0.5 MG TAB PO SCH (18:12)
[2025-07-13] MEDS: Mupirocin 1 GM TUBE TP SCH (20:04)
[2025-07-14] MEDS: Ketorolac Tromethamine 30 MG (1 mL) VIAL IVP PRN (03:56)
[2025-07-14 05:16] LABS: #Basophils 0.10 10x3/uL (0.0-0.2); #Eosinophils 0.33 10x3/uL (0.0-0.7); #Monocytes 1.16 10x3/uL (0.11-0.59); #Neutrophils 5.88 10x3/uL (1.40-6.50); %Basophils 1.0 % (0.0-1.0); %Eosinophils 3.3 % (0.0-10.0); %Lymphocytes 19.5 % (21.0-51.0); %Monocytes 11.7 % (0.0-10.0); %Neutrophils 59.6 % (42.0-75.0); Hematocrit 34.9 % (42.0-52.0); Hemoglobin 11.4 g/dL (14.0-18.0); Mean Corpuscular Hemoglobin 29.2 pg (27.0-31.0); Mean Corpuscular Volume 89.5 fL (78.0-98.0); Platelet Count 473 10x3/uL (130-400); Red Blood Cell (RBC) Count 3.90 mill/uL (4.70-6.10); White Blood Cell (WBC) Count 9.88 10x3/uL (4.8-10.8)
[2025-07-14 05:37] LABS: ALT (SGPT) 7 U/L (Less than 45); AST (SGOT) 33 U/L (11-34); Albumin 3.0 g/dL (3.1-4.5); Alkaline Phosphatase 65 U/L (40-110); Anion Gap 15 mmol/L (10-20); BUN (Urea Nitrogen) 30 mg/dL (8.4-25.7); Bilirubin, Total 0.2 mg/dL (0.3-1.2); Calc. Creatinine Clearance 75 mL/min (70-130); Calcium 8.9 mg/dL (7.8-10.44); Carbon Dioxide 25 mmol/L (23-31); Chloride 98 mmol/L (98-107); Globulin 3.9 g/dL (2.4-3.5); Glucose 86 mg/dL (80-115); Potassium 4.2 mmol/L (3.5-5.1); Sodium 134 mmol/L (136-145)
[2025-07-14] MEDS: clonazePAM 1 MG TAB PO PRN (12:22)
[2025-07-14 12:53] VITALS: BP 135/84; TEMP 98.8
== END 2025-07-14 13:45 | DRG 466 ==
LOC: SURG A 17:04
PROVIDERS: ADMIT Orthopaedic Surgery; ATTEND Internal Medicine
PROC: 0SPC0JZ Removal of Synthetic Substitute from Right Knee Joint, Open Approach (ICD-10-PCS; principal; 2025-07-04)
PROC: 0SRC0J9 Replacement of Right Knee Joint with Synthetic Substitute, Cemented, Open Approach (ICD-10-PCS; 2025-07-04)
PROC: 0SBC0ZZ Excision of Right Knee Joint, Open Approach (ICD-10-PCS; 2025-07-04)
PROC: 3E0U029 Introduction of Other Anti-infective into Joints, Open Approach (ICD-10-PCS; 2025-07-04)
PROC: 05HY33Z Insertion of Infusion Device into Upper Vein, Percutaneous Approach (ICD-10-PCS; 2025-07-12)
PROC: 3E04329 Introduction of Other Anti-infective into Central Vein, Percutaneous Approach (ICD-10-PCS; 2025-07-14)
DX: T84.53XA Infection and inflammatory reaction due to internal right knee prosthesis, initial encounter (principal); A41.01 Sepsis due to Methicillin susceptible Staphylococcus aureus; G93.41 Metabolic encephalopathy; M00.9 Pyogenic arthritis, unspecified; F33.9 Major depressive disorder, recurrent, unspecified; E03.9 Hypothyroidism, unspecified; F41.9 Anxiety disorder, unspecified; Z96.651 Presence of right artificial knee joint; Z98.890 Other specified postprocedural states; N40.0 Benign prostatic hyperplasia without lower urinary tract symptoms; G89.29 Other chronic pain; I10 Essential (primary) hypertension; G62.9 Polyneuropathy, unspecified; Z79.890 Hormone replacement therapy; Y84.9 Medical procedure, unspecified as the cause of abnormal reaction of the patient, or of later complication, without mention of misadventure at the time of the procedure
CPT/HCPCS: 20610; 36415; 36573; 71045; 80048; 80053; 80202; 80306; 80307; 82945; 83605; 84145; 84157; 85025; 86140; 86141; 86850; 86900; 86901; 87040; 87070; 87077; 87149; 87186; 87205; 88304; 89051; 89060; 93306; 96365; 96366; 96375; 96376; C1713; C1751; C1776; C1889; J0169; J0665; J0696; J1100; J1171; J1885; J2003; J2060; J2250; J2272; J2405; J3010; J3260; J3373; J3375; J3490; J7030; J7050; Q0177